=== PATIENT | female | born 1965 | race Caucasian/White ===

== ENCOUNTER 2024-07-23 10:45 | Outpatient (RCR) | payer OTHER, SELFPAY ==
--- NOTE | 2024-05-09 15:00 | PTOPEVAL1 ---
Assessment and note entered by Dalila Carlin DPT Evaluation Information Assessment Status Evaluation ICD-10 Condition Codes (PT) Weakness R53.1,Unspecified urinary incontinence R32 Subjective Information Pt reports she will get small amounts of incontinence with certain movements after urination. Has tried estrogen cream which seemed to help but it came back. Has been occurring for about 6 months. Incontinence occurs daily but it is a small amount. Voids 4 times in a 24 hour period, usually does not get up at night. Can hold urge to void unlimited amounts of time. Does not get stress incontinence with cough or sneeze. Denies pain with urination. BM daily, no pain or incontinence. Pelvic pain after first vaginal delivery/episiotomy but none since the first year after. Four vaginal deliveries. Patient has history of EDS as well. Partial hysterectomy 8-10 years ago and then ovaries taken out at a later date. No b/b history. Patient goal: get rid of the incontinence Returns to [facility] in 6 months Reported Pain Level Pain Score 0: Self Report Assessment PT Clinical Summary The patient is presenting to skilled therapy with a 6 month history of urinary incontinence post- voiding. She presents with decreased pelvic floor strength and endurance and decreased abdominal strength which are contributing to her daily incontinence. She will highly benefit from therapy to address these impairments in order to improve strength and eliminate incontinence. Plan of Care Interventions Manual Therapy,Neuro Re-education,Patient/ Caregiver Education,Therapeutic Activities, Therapeutic Exercise PT Services Indicated Yes Treatment Frequency and 1 time a week for 4 visits Duration These treatments will address the objective and functional deficits as defined above. The patient will be advanced safely and appropriately in order for the patient to progress towards his/her prior level of function. Additional exercises will be introduced and as well as a comprehensive home exercise program upon discharge, if needed, ?to ensure carryover of functional gains achieved in the clinic. This treatment plan has been reviewed and agreement upon by the patient.
--- NOTE | 2024-06-07 14:52 | OPREHPOC ---
Outpatient Therapy Plan of Care This is a Multidisciplinary Plan of Care that may contain components documented by all disciplines (PT, OT, and ST.) PT Problem 1 PT Problem #1 Knowledge Deficit PT Goal 1 Goal / Goal Update 1. Patient will perform independent HEP Target Visit 2 Progress Met PT Problem 2 PT Problem #2 Impaired Strength PT Goal 1 Goal / Goal Update 1. Pelvic floor strength 4/5 to reduce incontinence 2. Pelvic floor endurance 10 seconds to reduce incontinence Target Visit 4 Progress Met PT Problem 3 PT Problem #3 Impaired Functional ADLs PT Goal 1 Goal / Goal Update 1. Patient will report no incontinence for at least 2 weeks update 06/07/24 1. 3 times in last week Target Visit 5 Progress Partially Met
--- NOTE | 2024-06-07 14:52 | PTOPPROG ---
Assessment and note entered by Dalila Carlin DPT Evaluation Information Assessment Status Progress ICD-10 Condition Codes (PT) Weakness R53.1,Unspecified urinary incontinence R32 Subjective Information Pt does report some improvements in therapy, does feel her core and pelvic floor are stronger. Also notes the frequency of incontinence has decreased 3 times in the last week. Assessment PT Clinical Summary The patient has made good progress in therapy. She demonstrates improved pelvic floor strength and endurance and reports decreased frequency of incontinence. She does report continued incontinence and will benefit from therapy to further address strength in order to reduce incontinence and restore full function. Plan of Care Interventions Manual Therapy,Neuro Re-education,Patient/ Caregiver Education,Therapeutic Activities, Therapeutic Exercise PT Services Indicated Yes Treatment Frequency and 1 time a week for 4 visits Duration These treatments will address the objective and functional deficits as defined above. The patient will be advanced safely and appropriately in order for the patient to progress towards his/her prior level of function. Additional exercises will be introduced and as well as a comprehensive home exercise program upon discharge, if needed, ?to ensure carryover of functional gains achieved in the clinic. This treatment plan has been reviewed and agreement upon by the patient.
--- NOTE | 2024-07-23 11:19 | OPREHPOC ---
Outpatient Therapy Plan of Care This is a Multidisciplinary Plan of Care that may contain components documented by all disciplines (PT, OT, and ST.) PT Problem 1 PT Problem #1 Knowledge Deficit PT Goal 1 Goal / Goal Update 1. Patient will perform independent HEP Target Visit 2 Progress Met PT Problem 2 PT Problem #2 Impaired Strength PT Goal 1 Goal / Goal Update 1. Pelvic floor strength 4/5 to reduce incontinence 2. Pelvic floor endurance 10 seconds to reduce incontinence Target Visit 4 Progress Met PT Problem 3 PT Problem #3 Impaired Functional ADLs PT Goal 1 Goal / Goal Update 1. Patient will report no incontinence for at least 2 weeks update 06/07/24 1. 3 times in last week update 07/23/24 1. 1 time in last 2 weeks Target Visit 6 Progress Partially Met
--- NOTE | 2024-07-23 11:19 | PTOPPROG ---
Assessment and note entered by Dalila Carlin DPT Evaluation Information Assessment Status Progress ICD-10 Condition Codes (PT) Weakness R53.1,Unspecified urinary incontinence R32 Subjective Information Pt reports she is feeling like she is getting better. One instance of incontinence in the last 2 weeks. Assessment PT Clinical Summary The patient has continued to make good progress in therapy and reports decreased frequency of incontinence to 1 time in 2 weeks. She demonstrates improved pelvic floor muscle coordination. Due to her progress but continued infrequent incontinence, plan to continue therapy for 1 more visit in 4 weeks to progress toward goals and consider discharge at that time. Plan of Care Interventions Manual Therapy,Neuro Re-education,Patient/ Caregiver Education,Therapeutic Activities, Therapeutic Exercise PT Services Indicated Yes Treatment Frequency and 1 visit in 4 weeks Duration These treatments will address the objective and functional deficits as defined above. The patient will be advanced safely and appropriately in order for the patient to progress towards his/her prior level of function. Additional exercises will be introduced and as well as a comprehensive home exercise program upon discharge, if needed, ?to ensure carryover of functional gains achieved in the clinic. This treatment plan has been reviewed and agreement upon by the patient.
== END 2024-08-06 10:52 | disposition home or self-care (01) ==
LOC: ANHPT 10:45
PROVIDERS: PCP Registered Nurse; Visit Provider Registered Nurse
DX: M62.89 Other specified disorders of muscle (principal)
CPT/HCPCS: 97112; 97161; 97530

== ENCOUNTER 2024-08-21 08:23 | Outpatient (RCR) | payer OTHER, SELFPAY ==
--- NOTE | 2024-08-20 14:21 | PCPTNOTE ---
The treatment documented on this account is a continuation of the treatment documented on visit number [id number]. Please see documentation on both accounts to view progress. The Plan of Care has been transitioned and updated within the new V#. I have addressed and agree with the discipline specific Problems, Interventions, and Goals for the current certification period. Completed interventions, outcomes, and problems have been marked as Inactive to facilitate the copying of the Care plan routine for recurring accounts.
--- NOTE | 2024-08-20 15:52 | OPREHPOC ---
Outpatient Therapy Plan of Care This is a Multidisciplinary Plan of Care that may contain components documented by all disciplines (PT, OT, and ST.) PT Problem 1 PT Problem #1 Knowledge Deficit PT Goal 1 Goal / Goal Update 1. Patient will perform independent HEP Target Visit 2 Progress Met PT Problem 2 PT Problem #2 Impaired Strength PT Goal 1 Goal / Goal Update 1. Pelvic floor strength 4/5 to reduce incontinence 2. Pelvic floor endurance 10 seconds to reduce incontinence Target Visit 4 Progress Met PT Problem 3 PT Problem #3 Impaired Functional ADLs PT Goal 1 Goal / Goal Update 1. Patient will report no incontinence for at least 2 weeks update 06/07/24 1. 3 times in last week update 07/23/24, 08/20/24 1. 1 time in last 2 weeks Target Visit 6 Progress Partially Met
--- NOTE | 2024-08-20 15:52 | PTOPDC ---
Assessment and note entered by Dalila Carlin DPT Evaluation Information Assessment Status Discharge ICD-10 Condition Codes (PT) Weakness R53.1,Unspecified urinary incontinence R32 Subjective Information Pt reports she has been continuing to work on kegels and feels like things are getting better. Thinks incontinence is occurring once every week or every other week, very small volume. Reported Pain Level Pain Score 0: Self Report Assessment PT Clinical Summary The patient reports continued progress with frequency of incontinence at home. She demonstrates pelvic floor strength and endurance consistent with her last visit. Due to this, she will be discharged from therapy at this time. She has been educated to continue with updated HEP in order to continue progressing independently. Plan of Care PT Services Indicated No
== END 2024-08-21 12:17 | disposition home or self-care (01) ==
LOC: ANHPT 08:23
PROVIDERS: PCP Registered Nurse; Visit Provider Registered Nurse
DX: M62.89 Other specified disorders of muscle (principal)
CPT/HCPCS: 97530